=== PATIENT | female | born 1980 | race Caucasian/White ===

== ENCOUNTER 2017-10-15 11:45 | Observation (INO) | payer OTHER ==
[~2017-10-15] VITALS: Ht 167.6 cm; Wt 98.9 kg
[~2017-10-15 11:45] MED LIST: IBUP-974 PO; PREN-385 PO
[2017-10-15] MEDS ORDERED: TERBUTALINE 1 MG/ML VIAL SUBQ SCH (12:20)
[2017-10-15] MEDS ORDERED: TERBUTALINE 1 MG/ML VIAL SUBQ ONE ×2 (12:22→13:31)
[2017-10-15 12:28] VITALS: BP 109/54
[2017-10-15] MEDS ORDERED: cefTRIAXone 1,000 MG in LIDOCAINE MPF 1% - **ER/OR** 2.1 ML IM SCH (13:53)
== END 2017-10-15 15:25 | disposition home or self-care (01) ==
LOC: MLD 11:45
PROVIDERS: ADMIT Obstetrics & Gynecology; ATTEND Obstetrics & Gynecology
DX: O62.9 Abnormality of forces of labor, unspecified (principal); Z3A.35 35 weeks gestation of pregnancy
CPT/HCPCS: 76805; 81000; 96372; G0378; J0696; J2001; J3105; Q0092

== ENCOUNTER 2017-11-18 06:57 | Inpatient (IN) | payer OTHER ==
[~2017-11-18] VITALS: Ht 165.1 cm; Wt 103.4 kg
[~2017-11-18 06:57] MED LIST changes: -IBUP-974 PO
[2017-11-18 07:35] VITALS: BP 110/63
[2017-11-18] MEDS ORDERED: OXYTOCIN 10 UNITS/ML VIAL IM SCH (07:45)
[2017-11-18] MEDS ORDERED: NALBUPHINE 10 MG/ML AMP IVP PRN (07:45)
[2017-11-18] MEDS ORDERED: PROMETHAZINE 25 MG/ML VIAL IVP PRN (07:45)
[2017-11-18] MEDS ORDERED: OXYTOCIN 20 UNITS in LACTATED RINGERS 1,000 ML IV SCH (07:45)
[2017-11-18] MEDS ORDERED: LACTATED RINGERS 500 ML IV ONE (07:45)
--- NOTE | 2017-11-18 08:51 | NUR ---
PATIENT HAS BEEN SCREENED AND CATEGORIZED LOW NUTRITION RISK. PATIENT WILL BE SEEN WITHIN 7 DAYS OF ADMISSION. 11/24/[address]
[2017-11-18 09:21] LABS: BASOPHILS # (AUTO) 0.1 K/uL (0.00-0.22); BASOPHILS % (AUTO) 0.5 % (0.0-2.0); EOSINOPHILS # (AUTO) 0.2 K/uL (0-0.4); EOSINOPHILS % (AUTO) 1.9 % (0.0-4.0); HEMATOCRIT 37.9 % (36-48); HEMOGLOBIN 12.6 g/dL (12.0-16.0); LYMPHOCYTES # (AUTO) 2.9 K/uL (2.5-16.5); LYMPHOCYTES % (AUTO) 28.5 % (20.5-51.1); MEAN CORPUSCULAR HEMOGLOBIN 29 pg (27-31); MEAN CORPUSCULAR HGB CONC 33 g/dL (33-37); MEAN CORPUSCULAR VOLUME 88.8 fL (80-94); MONOCYTES # (AUTO) 0.8 K/uL (0.8-1.0); MONOCYTES % (AUTO) 7.8 % (1.7-9.3); NEUTROPHILS # (AUTO) 6.3 K/uL (1.8-7.7); NEUTROPHILS % (AUTO) 61.3 % (42.2-75.2); PLATELET COUNT (AUTO) 232 K/uL (140-450); RED BLOOD CELL COUNT(AUTO) 4.27 MIL/uL (4.20-5.40); RED CELL DISTRIBUTION WIDTH 14.7 % (11.6-13.7); WHITE BLOOD COUNT (AUTO) 10.2 K/uL (4.8-10.8)
[2017-11-18 09:35] LABS: ALBUMIN 2.6 g/dL (3.4-5.0); ANION GAP 13.6 (8-16); CARBON DIOXIDE 24.2 mmol/L (21-32); CREATININE 0.6 mg/dL (0.6-1.3); POTASSIUM 3.8 mmol/L (3.5-5.1); TOTAL BILIRUBIN 0.2 mg/dL (0.0-1.0)
[2017-11-18] MEDS: LACTATED RINGERS 1,000 ML IV SCH ×4 (09:46→22:13)
[2017-11-18 09:48] LABS: APPEARANCE,URINE HAZY (CLEAR); BILIRUBIN,URINE NEGATIVE (NEGATIVE); BLOOD, URINE TRACE-I (NEGATIVE); COLOR,URINE YELLOW (YELLOW); LEUKOCYTE ESTERASE ,URINE 2+ (NEGATIVE); NITRITE, URINE NEGATIVE (NEGATIVE); UGLUCOSE NEGATIVE (NEGATIVE)
[2017-11-18] MEDS ORDERED: MISOPROSTOL 25 MCG TAB ONE ×2 (09:52→13:55)
[2017-11-18 09:59] LABS: RBC,URINE 0-5 (RARE) /HPF (0-5)
[2017-11-18 10:00] LABS: CALCIUM OXALATE CRYSTALS,UR 0-10 /HPF (None Seen); WBC,URINE 20-60 /HPF (0-5)
[2017-11-18] MEDS: MISOPROSTOL 25 MCG TAB VG PRN ×2 (10:00→13:58)
[2017-11-18] MEDS ORDERED: TERBUTALINE 1 MG/ML VIAL SUBQ SCH (15:35)
[2017-11-18] MEDS ORDERED: TERBUTALINE 1 MG/ML VIAL SUBQ ONE (15:37)
[2017-11-18] MEDS ORDERED: MORPHINE SULFATE 10 MG/ML SYR IVP PRN (15:50)
[2017-11-18] MEDS ORDERED: MORPHINE SULFATE 10 MG/ML SYR ONE (15:53)
[2017-11-18] MEDS ORDERED: PROMETHAZINE 25 MG/ML VIAL ONE (15:53)
[2017-11-18] MEDS ORDERED: MEASLES, MUMPS, AND RUBELLA 1 VIAL SQVAC PRN (16:45)
[2017-11-18] MEDS ORDERED: oxyCODONE/APAP 5/325 MG 1 TAB TAB PO PRN (16:45)
[2017-11-18] MEDS ORDERED: TEMAZEPAM 15 MG CAP PO PRN (16:45)
[2017-11-18] MEDS ORDERED: OXYTOCIN 10 UNITS/ML VIAL IM PRN (16:45)
[2017-11-18] MEDS ORDERED: BENZOCAINE/MENTHOL 20%-0.5% 60 GM CAN TP PRN (16:45)
[2017-11-18] MEDS ORDERED: METHYLERGONOVINE 0.2 MG/ML AMP IM PRN (16:45)
[2017-11-18] MEDS ORDERED: DOCUSATE SOD/SENNA 50/8.6 MG 1 TAB PO SCH (21:00)
[2017-11-18] MEDS ORDERED: BUPIVACAINE 0.125%/NS PREMIX 250 ML ONE (21:39)
[2017-11-18] MEDS ORDERED: OXYTOCIN 20 UNITS/LR PREMIX 1,000 ML IV ONE (23:40)
[2017-11-18] MEDS ORDERED: OXYTOCIN 10 UNITS/ML VIAL ONE (23:56)
[2017-11-19] MEDS ORDERED: LIDOCAINE MPF 1% - **ER/OR** 10 ML ONE (01:07)
[2017-11-19] MEDS: HYDROcodone/APAP 5/325 MG 1 TAB TAB PO PRN ×2 (07:05→16:00)
[2017-11-19] MEDS ORDERED: OXYTOCIN 20 UNITS in LACTATED RINGERS 1,000 ML IV SCH (07:45)
[2017-11-19] MEDS ORDERED: IBUPROFEN 800 MG TAB PO PRN (16:45)
[2017-11-21] MEDS ORDERED: IBUP-1801 PO (08:09)
== END 2017-11-21 19:00 | disposition home or self-care (01) | DRG 560 ==
LOC: MLD 06:57 → MFCC 11-19 02:50
PROVIDERS: ADMIT Obstetrics & Gynecology; ATTEND Obstetrics & Gynecology
PROC: 10E0XZZ Delivery of Products of Conception, External Approach (ICD-10-PCS; principal; 2017-11-18)
PROC: 0HQ9XZZ Repair Perineum Skin, External Approach (ICD-10-PCS; 2017-11-18)
PROC: 00HU33Z Insertion of Infusion Device into Spinal Canal, Percutaneous Approach (ICD-10-PCS; 2017-11-18)
PROC: 3E0R3BZ Introduction of Anesthetic Agent into Spinal Canal, Percutaneous Approach (ICD-10-PCS; 2017-11-18)
DX: O70.0 First degree perineal laceration during delivery (principal); Z37.0 Single live birth; Z3A.39 39 weeks gestation of pregnancy
CPT/HCPCS: 36415; 51702; 59200; 59409; 80053; 81001; 85018; 85025; 86592; 86886; 86900; 86901; 87086; 90715; J2001; J2270; J2550; J2590; J3105; J3490; J7120